=== PATIENT | male | born 1980 | race Caucasian/White ===

== ENCOUNTER 2023-03-06 10:10 | Emergency (ER) | payer BC, MEDICAID ==
[2023-03-06] MEDS ORDERED: Ondansetron 4 MG/2 ML SDV IVPUSH ONE (10:19)
[2023-03-06] MEDS: Ondansetron 4 MG/2 ML SDV ONE ×2 (10:19→10:49)
[2023-03-06] MEDS ORDERED: Sodium Chloride 0.9% 1,000 ML IV ONE (10:19)
[2023-03-06] MEDS ORDERED: fentaNYL 50 MCG/ML SDV IVPUSH ONE (10:19)
[2023-03-06] MEDS ORDERED: fentaNYL 50 MCG/ML SDV ONE (10:19)
[2023-03-06] MEDS ORDERED: Sodium Chloride 0.9% 10 ML Syringe FLUSH PRN (10:19)
[2023-03-06] MEDS ORDERED: Ketorolac 15 MG/ML SDV IVPUSH ONE (10:27)
[2023-03-06] MEDS ORDERED: Ketorolac 15 MG/ML SDV ONE (10:27)
[2023-03-06 10:34] LABS: BASOPHILS ABSOLUTE AUTO 0.02 K/uL (0.00-0.20); BASOPHILS PERCENT AUTO 0.3 % (0.0-2.0); EOSINOPHILS ABSOLUTE AUTO 0.08 K/uL (0.00-0.50); HEMATOCRIT 42.7 % (39.0-49.0); LYMPHOCYTES ABSOLUTE AUTO 1.57 K/uL (0.50-3.50); LYMPHOCYTES PERCENT AUTO 19.6 % (10.0-50.0); MEAN CORPUSCULAR HEMOGLOBIN 30.6 pg (28.2-33.3); MEAN CORPUSCULAR HGB CONC 35.1 g/dL (31.7-36.0); MEAN CORPUSCULAR VOLUME 87.1 fL (84.0-98.0); MONOCYTES ABSOLUTE AUTO 0.49 K/uL (0.00-1.00); MONOCYTES PERCENT AUTO 6.1 % (2.0-14.0); NEUTROPHILS ABSOLUTE AUTO 5.83 K/uL (1.40-7.00); PLATELET COUNT,PLT 289 K/uL (150-350); RED CELL DISTRIBUTION WIDTH 13.4 % (11.2-14.1)
[2023-03-06 10:39] LABS: PROTHROMBIN TIME 10.1 SEC (9.0-11.1)
[2023-03-06 10:42] LABS: ALBUMIN 4.1 g/dL (3.4-5.0); ANION GAP 9.5 meq/L (7-15); BILIRUBIN TOTAL 0.5 mg/dL (0.2-1.0); CALCIUM 9.3 mg/dL (8.5-10.1); CARBON DIOXIDE,CO2 26.5 mmol/L (21.0-32.0); CREATININE 1.52 mg/dL (0.51-1.17); EST CRCL DRUG DOSING (CG) 75.11 mL/min; PROTEIN TOTAL,TP 7.8 g/dL (6.4-8.2)
== END 2023-03-06 11:45 | disposition home or self-care (01) ==
LOC: LL.ED 10:10
DX: N13.2 Hydronephrosis with renal and ureteral calculous obstruction (principal); Z72.0 Tobacco use
CPT/HCPCS: 36415; 74176; 80053; 83690; 85025; 85610; 96361; 96374; 96375; 99284; 99284-25; J1885; J2405; J3010; J3490; J7030

== ENCOUNTER 2023-07-04 05:43 | Observation (INO) | payer BC, MEDICAID ==
[2023-07-04] MEDS ORDERED: Ondansetron 4 MG/2 ML SDV IVPUSH ONE (06:07)
[2023-07-04] MEDS ORDERED: Tamsulosin 0.4 MG Cap.ER PO ONE (06:07)
[2023-07-04] MEDS ORDERED: Sodium Chloride 0.9% 1,000 ML IV ONE ×2 (06:09→07:50)
[2023-07-04] MEDS ORDERED: Ketorolac 15 MG/ML SDV IVPUSH ONE (06:09)
[2023-07-04 06:10] LABS: BASOPHILS ABSOLUTE AUTO 0.03 K/uL (0.00-0.20); BASOPHILS PERCENT AUTO 0.4 % (0.0-2.0); EOSINOPHILS PERCENT AUTO 1.4 % (0.0-5.0); HEMATOCRIT 42.5 % (39.0-49.0); HEMOGLOBIN 14.7 g/dL (13.1-16.8); LYMPHOCYTES PERCENT AUTO 45.9 % (10.0-50.0); MEAN CORPUSCULAR HEMOGLOBIN 30.4 pg (28.2-33.3); MEAN CORPUSCULAR HGB CONC 34.6 g/dL (31.7-36.0); MEAN CORPUSCULAR VOLUME 87.8 fL (84.0-98.0); MONOCYTES ABSOLUTE AUTO 0.75 K/uL (0.00-1.00); MONOCYTES PERCENT AUTO 10.1 % (2.0-14.0); NEUTROPHILS ABSOLUTE AUTO 3.12 K/uL (1.40-7.00); NEUTROPHILS PERCENT AUTO 42.2 % (45.0-80.0); PLATELET COUNT,PLT 313 K/uL (150-350); RED BLOOD CELL COUNT 4.84 M/uL (4.33-5.41); RED CELL DISTRIBUTION WIDTH 13.5 % (11.2-14.1); WHITE BLOOD CELL COUNT,WBC 7.4 K/uL (4.0-10.2)
[2023-07-04 06:24] LABS: ALANINE AMINOTRANSFERASE,ALT 43 U/L (12-78); ALBUMIN 3.7 g/dL (3.4-5.0); ALKALINE PHOSPHATASE 74 IU/L (46-116); ANION GAP 7.6 meq/L (7-15); ASPARTATE AMNIOTRANSFERASE,AST 16 U/L (15-37); BILIRUBIN TOTAL 0.4 mg/dL (0.2-1.0); BLOOD UREA NITROGEN,BUN 27 mg/dL (7-18); CARBON DIOXIDE,CO2 30.4 mmol/L (21.0-32.0); CHLORIDE,CL 101 mmol/L (98-107); ESTIMATED GFR 65 mL/min (>=60); GLUCOSE RANDOM 105 mg/dL (70-99); POTASSIUM,K 3.7 mmol/L (3.5-5.1); PROTEIN TOTAL,TP 7.2 g/dL (6.4-8.2); SODIUM,NA 139 mmol/L (136-145)
[2023-07-04 06:26] LABS: BILIRUBIN,URINE NEGATIVE (NEGATIVE); COLOR,URINE YELLOW; GLUCOSE,URINE NEGATIVE (NEGATIVE); KETONES,URINE NEGATIVE (NEGATIVE); LEUKOCYTE ESTERASE,URINE NEGATIVE (NEGATIVE); NITRITE,URINE NEGATIVE (NEGATIVE); OCCULT BLOOD,URINE MODERATE (NEGATIVE); PH,URINE 5.5 (5.0-9.0); PROTEIN,URINE TRACE mg/dL (NEGATIVE); UROBILINOGEN,URINE 0.2 E.U./dL (0.2-1.0)
[2023-07-04 06:33] LABS: APPEARANCE,URINE CLOUDY
[2023-07-04 06:34] LABS: RBC,URINE 20-30 /HPF; WBC,URINE 0-5 /HPF
[2023-07-04] MEDS ORDERED: HYDROmorphone 0.5 MG/0.5 ML Syringe IVPUSH ONE ×2 (07:21→08:38)
[2023-07-04] MEDS ORDERED: Promethazine 25 MG/ML SDV IM ONE (07:54)
[2023-07-04] MEDS ORDERED: HYDROmorphone 1 MG/ML Syringe IVPUSH ONE (08:26)
[2023-07-04] MEDS ORDERED: Naloxone 0.4 MG/ML SDV IVPUSH PRN (10:40)
[2023-07-04] MEDS ORDERED: Acetaminophen 325 MG Tab PO PRN (10:40)
[2023-07-04] MEDS ORDERED: HYDROmorphone 1 MG/ML Syringe IVPUSH PRN (10:40)
[2023-07-04] MEDS ORDERED: Ondansetron 4 MG/2 ML SDV IVPUSH PRN (10:40)
[2023-07-04] MEDS: Sodium Chloride 0.9% 1,000 ML IV SCH (10:45)
[2023-07-04] MEDS ORDERED: HYDROmorphone 0.5 MG/0.5 ML Syringe IVPUSH PRN (10:57)
[2023-07-04] MEDS: Ketorolac 15 MG/ML SDV IVPUSH SCH ×2 (13:40→17:53)
[2023-07-04] MEDS: Tamsulosin 0.4 MG Cap.ER PO SCH (20:42)
[2023-07-05] MEDS: Ketorolac 15 MG/ML SDV IVPUSH SCH ×2 (00:16→07:28)
[2023-07-05] MEDS: Sodium Chloride 0.9% 1,000 ML IV SCH (07:25)
[2023-07-05] MEDS: Tamsulosin 0.4 MG Cap.ER PO SCH (07:34)
[2023-07-05 07:43] LABS: BASOPHILS ABSOLUTE AUTO 0.02 K/uL (0.00-0.20); BASOPHILS PERCENT AUTO 0.3 % (0.0-2.0); EOSINOPHILS PERCENT AUTO 1.6 % (0.0-5.0); HEMATOCRIT 38.5 % (39.0-49.0); HEMOGLOBIN 13.2 g/dL (13.1-16.8); LYMPHOCYTES ABSOLUTE AUTO 2.89 K/uL (0.50-3.50); MEAN CORPUSCULAR HEMOGLOBIN 30.3 pg (28.2-33.3); MEAN CORPUSCULAR HGB CONC 34.3 g/dL (31.7-36.0); MEAN CORPUSCULAR VOLUME 88.5 fL (84.0-98.0); MONOCYTES ABSOLUTE AUTO 0.49 K/uL (0.00-1.00); MONOCYTES PERCENT AUTO 7.6 % (2.0-14.0); NEUTROPHILS ABSOLUTE AUTO 2.92 K/uL (1.40-7.00); NEUTROPHILS PERCENT AUTO 45.5 % (45.0-80.0); PLATELET COUNT,PLT 255 K/uL (150-350); RED BLOOD CELL COUNT 4.35 M/uL (4.33-5.41); RED CELL DISTRIBUTION WIDTH 13.2 % (11.2-14.1); WHITE BLOOD CELL COUNT,WBC 6.4 K/uL (4.0-10.2)
[2023-07-05 08:00] LABS: ANION GAP 4.8 meq/L (7-15); CALCIUM 8.1 mg/dL (8.5-10.1); CARBON DIOXIDE,CO2 28.2 mmol/L (21.0-32.0); CREATININE 1.2 mg/dL (0.51-1.17); EST CRCL DRUG DOSING (CG) 95.14 mL/min; POTASSIUM,K 3.9 mmol/L (3.5-5.1)
[2023-07-05] MEDS ORDERED: Take Home: traMADol 50 MG, 4 Tab Pack PO ONE (10:33)
== END 2023-07-05 10:55 | disposition home or self-care (01) ==
LOC: LL.ED 05:43 → LL.MS 10:28
PROVIDERS: ADMIT Emergency Medicine; ATTEND Emergency Medicine
DX: N20.0 Calculus of kidney (principal); F17.200 Nicotine dependence, unspecified, uncomplicated; Z79.899 Other long term (current) drug therapy
CPT/HCPCS: 36415; 74176; 80048; 80053; 81001; 85025; 96361; 96374; 96375; 96376; 99285-25; A9270-GY; G0378; J1170; J1885; J2405; J7030